=== PATIENT | female | born 1960 | race Hispanic/Latino ===

== ENCOUNTER 2017-08-15 13:45 | Outpatient (CLI) | payer OTHER ==
--- NOTE | 2017-08-21 12:24 | MMO ---
BILATERAL SCREENING MAMMOGRAMS: DATE: 08/15/17 No prior comparisons. Interpreted as baseline exam. This patient's mammogram was interpreted with the assistance of computer-aided detection. FINDINGS: There is heterogeneously dense breast parenchyma bilaterally, which limits the sensitivity of mammog batsheva and could obscure underlying pathology. There is vascular calcification, as well as parenchyma l calcification bilaterally. No evidence of a dominant mass, suspicious clustering of microcalcifica tion, or architectural distortion. IMPRESSION: BIRADS 2: Benign Finding(s) Annual screening mammography is recommended. POS: [facility]
== END 2017-08-15 13:46 | disposition home or self-care (01) ==
LOC: SCSMAMMO 13:45
PROVIDERS: ATTEND Family Medicine
DX: Z12.31 Encounter for screening mammogram for malignant neoplasm of breast (principal)
CPT/HCPCS: 77067; G0202

== ENCOUNTER 2025-06-11 12:50 | Outpatient (CLI) | payer OTHER, MEDICARE | END 2025-06-11 12:51 | disposition home or self-care (01) | LOC: BICMAMMO 12:50 | PROVIDERS: ATTEND Internal Medicine | DX: M81.0 Age-related osteoporosis without current pathological fracture (principal) | CPT/HCPCS: 77080 ==